=== PATIENT | female | born 1985 | race African-American/Black ===

== ENCOUNTER 2018-02-20 17:49 | Emergency (ER) | payer OTHER ==
[2018-02-20 18:20] LABS: URINE HCG POC HCG POSITIVE (Negative)
[2018-02-20 18:23] LABS: BILIRUBIN,URINE NEGATIVE (NEG); CLARITY,URINE CLEAR; COLOR,URINE YELLOW; GLUCOSE,URINE NEGATIVE (NEG); NITRITE,URINE NEGATIVE (NEG); PROTEIN,URINE NEGATIVE (NEG-TRACE)
[2018-02-20 18:24] LABS: NEG OBC UR NEG; U PREG PATIENT POSITIVE (NEG)
[2018-02-20 18:25] LABS: POS OBC UR POS
[2018-02-20 18:31] LABS: BACTERIA,URINE MODERATE /HPF (0-FEW); RBC,URINE 0 /HPF (0-2); SQUAMOUS EPITHELIAL CELL,UR MANY /LPF
== END 2018-02-20 19:25 | disposition home or self-care (01) ==
LOC: ER 19:25
DX: O26.892 Other specified pregnancy related conditions, second trimester (principal); R10.2 Pelvic and perineal pain; Z3A.14 14 weeks gestation of pregnancy
CPT/HCPCS: 76801; 81001; 81025; 87086; 99285-25